=== PATIENT | male | born 1980 | race Caucasian/White ===

== ENCOUNTER 2017-03-09 18:22 | Emergency (ER) | payer MEDICAID, OTHER ==
--- NOTE | 2017-03-09 18:59 | ER NURSING DOCUMENTATION ---
Nurse's Notes [facility] Name:Sg Sylvester Age:36 yrs Sex:Male :1980 Arrival Date:03/09/2017 Time:18:22 Bed2 Private MD:Cabrera Redman Diagnosis:Carbon Monoxide Exposure Presentation: 03/09 18:37 Presenting complaint: Patient states: carbon monoxide detector was going off in pts lb home. pt was in home for 45 minutes denies shortness of breath. Transition of care: Home. Notified ED Physician of Dr. Tierney notified. 18:37 Acuity: CHLOE 3 lb 18:37 Method Of Arrival: Walk In lb Triage Assessment: 18:40 General: Appears in no apparent distress, Behavior is appropriate for age. Pain: Denies lb pain. Historical: - Allergies: No known drug Allergies; varicocele; - Home Meds: 1. olanzapine oral 2. Temazepam Oral - PSHx: SHOULDER SURGERY; - Tetanus: < 10 years. - Ebola Screening: : Patient denies exposure to infectious person. Patient denies travel to an Ebola-affected area in the 21 days before illness onset. . - Immunization history: Flu Vaccine None. - Social history: Smoking status: Patient states former smoker of tobacco. Patient uses alcohol on a daily basis. Screenin:42 Infectious Disease Risk None. Abuse screen: Denies threats or abuse. Denies injuries lb from another. Nutritional screening: No deficits noted. Assessment: 18:41 See Triage Assessment done by same RN. Respiratory: Airway is patent Trachea midline lb Respiratory effort is even, unlabored, Respiratory pattern is regular, Breath sounds are clear bilaterally. Vital Signs: 18:40 BP 116 / 75; Pulse 54; Resp 15; Temp 97.2; Pulse Ox 97% on R/A; Weight 77.11 kg; Height lb 5 ft. 10 in. (177.80 cm); Pain 0/10; 18:40 Body Mass Index 24.39 (77.11 kg, 177.80 cm) lb ED Course: 18:23 Patient arrived in ED. ds 18:23 Cabrera Redman MD is Private Physician. ds 18:33 Jadon Tierney MD is Attending Physician. sc 18:36 Melyssa Salinas, ESTELA is Primary Nurse. lp 18:37 Lisseth Coburn is Primary Nurse. lb 18:39 Triage completed. lb 18:42 Valuables Remains with patient. lb Administered Medications: No medications were administered Outcome: 18:50 Discharge ordered by . randolph 18:58 Discharged to home lp 18:58 Condition: stable 18:58 Instructed on discharge instructions, follow up and referral plans. medication usage. 18:59 Patient left the ED. lp 03/10 11:30 Discharge F/U Call: Unable to reach: no answer lp Signatures: Melyssa Salinas RN RN lp ot, Dotty, Pop Reg ds Jadon Tierney MD MD sc Bollock, Lynda lb
--- NOTE | 2017-03-09 18:59 | ER PHYSICIAN DOCUMENTATION ---
Physician Documentation [facility] Name:Sg Sylvester Age:36 yrs Sex:Male :1980 Arrival Date:03/09/2017 Time:18:22 Bed2 Private MD:Cabrera Redman ED, Scott Disposition: 03/09/17 18:50 Discharged to Home/Self Care. Impression: Carbon Monoxide Exposure. - Condition is Good. - Discharge Instructions: CARBON MONOXIDE POISONING. - Medical Reconciliation form form. - Follow up: Emergency Department; When: As needed; Reason: Worsening of condition. - Problem is new. - Symptoms have improved. HPI: 03/09 18:45 This 36 yrs old Male presents to ER via Walk In with complaints of Carbon sc Monoxide Exposure. 18:45 The patient presents to the emergency department with a possible poisoning, as a result sc of carbon monoxide exposure. Context: the OD/poisoning occurred at at home, co detector alarmed, short time exposure, felt lightheaded then but now nl. Associated signs and symptoms: Pertinent positives: dizziness, Pertinent negatives: apnea, decreased level of consciousness, loss of consciousness, shortness of breath. Severity of symptoms: At their worst the symptoms were mild. The patient has not experienced similar symptoms in the past. Historical: - Allergies: No known drug Allergies; varicocele; - Home Meds: 1. olanzapine oral 2. Temazepam Oral - PSHx: SHOULDER SURGERY; - Tetanus: < 10 years. - Ebola Screening: : Patient denies exposure to infectious person. Patient denies travel to an Ebola-affected area in the 21 days before illness onset. . - Immunization history: Flu Vaccine None. - Social history: Smoking status: Patient states former smoker of tobacco. Patient uses alcohol on a daily basis. ROS: 18:47 Constitutional: Negative for fever, chills, and weight loss. sc Eyes: Negative for injury, pain, redness, and discharge. ENT: Negative for injury, pain, and discharge. Neck: Negative for injury, pain, and swelling. Cardiovascular: Negative for chest pain, palpitations, and edema. Abdomen/GI: Negative for abdominal pain, nausea, vomiting, diarrhea, and constipation. Back: Negative for injury and pain. 18:47 Skin: Negative for injury, rash, and discoloration. sc 18:47 Respiratory: Negative for cough, shortness of breath, wheezing. 18:47 Neuro: Positive for dizziness. Exam: Constitutional: This is a well developed, well nourished patient who is awake, alert, and in no acute distress. Head/Face: Normocephalic, atraumatic. Eyes: Pupils equal round and reactive to light, extra-ocular motions intact. Lids and lashes normal. Conjunctiva and sclera are non-icteric and not injected. Cornea within normal limits. Periorbital areas with no swelling, redness, or edema. ENT: Nares patent. No nasal discharge, no septal abnormalities noted. Tympanic membranes are normal and external auditory canals are clear. Oropharynx with no redness, swelling, or masses, exudates, or evidence of obstruction, uvula midline. Mucous membranes moist. Neck: Trachea midline, no thyromegaly or masses palpated, and no cervical lymphadenopathy. Supple, full range of motion without nuchal rigidity, or vertebral point tenderness. No meningismus. Chest/axilla: Normal chest wall appearance and motion. Nontender with no deformity. No lesions are appreciated. Cardiovascular: Regular rate and rhythm with a normal S1 and S2. No gallops, murmurs, or rubs. Normal PMI, no JVD. No pulse deficits. Respiratory: Lungs have equal breath sounds bilaterally, clear to auscultation and percussion. No rales, rhonchi or wheezes noted. No increased work of breathing, no retractions or nasal flaring. Abdomen/GI: Soft, non-tender, with normal bowel sounds. No distension or tympany. No guarding or rebound. No evidence of tenderness throughout. Back: No spinal tenderness. No costovertebral tenderness. Full range of motion. 18:47 Skin: Warm, dry with normal turgor. Normal color with no rashes, no lesions, and no sc evidence of cellulitis. 18:50 Cardiovascular: Rate: normal, Rhythm: regular. sc 18:50 Respiratory: the patient does not display signs of respiratory distress, Respirations: normal, Breath sounds: are normal, clear throughout. 18:50 Psych: Behavior/mood is pleasant, cooperative, Affect is calm, Patient has no thoughts/intents to harm self or others. 18:50 Neuro: Orientation: is normal, Cranial nerves: CN II- XII are normal as tested, sc Cerebellar function: is grossly normal, Motor: is normal. Vital Signs: 18:40 BP 116 / 75; Pulse 54; Resp 15; Temp 97.2; Pulse Ox 97% on R/A; Weight 77.11 kg; Height lb 5 ft. 10 in. (177.80 cm); Pain 0/10; 18:40 Body Mass Index 24.39 (77.11 kg, 177.80 cm) lb MDM: 18:33 Patient medically screened. sc 18:48 Differential diagnosis: Ingestion/exposure to co. Data reviewed: vital signs, nurses sc notes, and as a result, I will continue to observe the patient. Counseling: I had a detailed discussion with the patient and/or guardian regarding: the historical points, exam findings, and any diagnostic results supporting the discharge/admit diagnosis, the need for outpatient follow up, to return to the emergency department if symptoms worsen or persist or if there are any questions or concerns that arise at home. Dispensed Medications: No medications were administered Signatures: Melyssa Salinas RN RN lp Chew, Scott, MD MD mn Lisseth Coburn
== END 2017-03-09 18:59 | disposition home or self-care (01) ==
LOC: ER 18:22
DX: T58.91XA Toxic effect of carbon monoxide from unspecified source, accidental (unintentional), initial encounter (principal); Y92.009 Unspecified place in unspecified non-institutional (private) residence as the place of occurrence of the external cause; Z79.899 Other long term (current) drug therapy
CPT/HCPCS: 99281